=== PATIENT | female | born 1950 | race Caucasian/White ===

== ENCOUNTER → 2016-12-26 | Outpatient (CLI) | payer OTHER, MEDICARE ==
[~2016-12-26] MED LIST: ACET-1138 PO; AMLO-110 PO; AMOX500C3 PO; ASPEC325 PO; ASPI81TA28 PO; CALC500C70 PO; CALC500T83 PO; CHOL2000 PO; CYAN10005 PO; DICL-201 PO; ESCI1TAB10 PO; FRRG PO; HMLI7525 SC; INSU1.2I SC; INSU100I2 SC; LEVO175T PO; LEVO200T PO; LISI40TA PO; METF1TAB85 PO; METR-163 PO; MULT-884 PO; NAPR1TAB9 PO; RXC5 PO
[2016-12-26 13:36] LABS: ALT/SGPT 23 U/L (12-78); AST/SGOT 22 U/L (15-37); BLOOD UREA NITROGEN 14 mg/dl (7-18); BUN/CREATININE RATIO 15.6 (10-20); CALCIUM 8.9 mg/dl (8.5-10.1); CARBON DIOXIDE 29 mmol/L (21-32); CHLORIDE 101 mmol/L (98-107); CHOLESTEROL 152 mg/dl (0-200); CREATININE 0.88 mg/dl (0.60-1.20); GLUCOSE 189 mg/dl (70-99); SODIUM 138 mmol/L (136-145); TRIGLYCERIDES 134 mg/dl (0-150); VERY LOW DENSITY LIPOPROT CALC 27 mg/dl
[2016-12-26 13:46] LABS: ALB/GLOB RATIO 1.1 (0.9-2); ALKALINE PHOSPHATASE 101 U/L (45-117); HDL CHOLESTEROL 50 mg/dl; LDL CHOLESTEROL CALCULATED 75 mg/dl; THYROID STIMULATING HORMONE 0.861 uIu/ml (0.300-4.500)
[2016-12-26 13:50] LABS: ESTIMATED AVERAGE GLUCOSE 189 mg/dl; HA1C FLAG Normal (Normal)
== END | disposition home or self-care (01) ==
LOC: C.LABBC 11:01
PROVIDERS: ATTEND Family Medicine
DX: E11.9 Type 2 diabetes mellitus without complications (principal); E03.9 Hypothyroidism, unspecified; I10 Essential (primary) hypertension

== ENCOUNTER → 2017-01-06 | Outpatient (CLI) | payer OTHER, MEDICARE ==
[2017-01-10 16:32] LABS: IGA SERUM 324 mg/dL (81-463); TIS TRANS IGA 1 U/mL (<4)
== END | disposition home or self-care (01) ==
LOC: C.LAB1850 15:52
PROVIDERS: ATTEND Physician Assistant
DX: R19.7 Diarrhea, unspecified (principal)

== ENCOUNTER → 2017-01-15 | Day surgery (SDC) | payer OTHER, MEDICARE ==
[2017-01-14 11:27] VITALS: Ht 165.1 cm; Wt 119.5 kg
[~2017-01-15] VITALS: Ht 165.1 cm; Wt 119.5 kg
[~2017-01-15] MED LIST changes: -ACET-1138 PO; -ASPEC325 PO; +ATROPINE SULFATE 0.1 MG/ML 5ML SYR IV PRN; -CALC500T83 PO; -CHOL2000 PO; +EpHEDrine SULFATE INJ 50 MG/ML AMP IV PRN; -FRRG PO; -HMLI7525 SC; -LEVO175T PO; +LIDOCAINE HCL 2% 2 ML VIAL (20MG/ML) ONE; +MIDAZOLAM HCL 1 MG/ML 2ML VIAL ONE; -NAPR1TAB9 PO; +ONDANSETRON INJ 2 MG/ML 2 ML VIAL ONE; +PROPOFOL IV EMULSION 10 MG/ML 20 ML VIAL IV ONE; -RXC5 PO; +SODIUM CHLORIDE 0.9% 500ML 500 ML IV ONE
--- NOTE | 2017-01-15 12:22 | Endo History and Physical ---
History & Physical Date of Service: Jan 15, 2017. Chief Complaint: Diarrhea Referring Physician: Dr. Obando History of Present Illness 66 yo CF who presents for colonoscopy secondary to diarrhea. Past Medical History Diabetes, Arthritis, Fractures, Hypertension, Thyroid Disease, Other, Depression Past Surgical History Hx Cardiac Surgery: No Hx Internal Defibrillator: No Hx Pacemaker: No Hx Abdominal Surgery: Yes (CERVICAL CRYOTHERAPY, APPY) Hx of Implantable Prosthesis: No Hx Post-Op Nausea and Vomiting: No Hx Cancer Surgery: No Hx Thoracic Surgery: No Hx Orthopedic: Yes (LT/RT TKA, LT CTR X2, LT RCR) Hx Urinary Tract Surgery: No Family History None Social History Smoking Status: Former Smoker Hx Substance Use: No Hx Alcohol Use: No Allergies Coded Allergies: A[place] Oil (Verified Allergy, Unknown, ICHY EYES STUFFY NOSE, 01/14/17) NO KNOWN DRUG ALLERGIES (Verified Allergy, Unknown, ., 01/14/17) POLLEN (Verified Allergy, Unknown, POLLEN,MOLDS,OAK TREES-STUFFY NOSE ITCHY EYES, 01/14/17) Current Medications Reported Home Medications Medications Dose Route/Sig Max Daily Dose Days Date Category Dose Instructions Amoxil (Amoxicillin) 500 Mg Cap 4 Tabs PO UD PRN 01/14/17 Reported Flagyl (Metronidazole) 500 Mg Tab 2 Tabs PO UD PRN 01/14/17 Reported Toujeo Solostar (Insulin Glargine) 300 Unit/Ml Inj 48 Units SC HS 01/14/17 Reported Humalog Kwikpen (Insulin Lispro (Human)) 100 Unit/Ml Inj Units SC UD 01/14/17 Reported 14 UNITS BREAKFAST 14 UNITS LUNCH 16 UNITS DINNER Os-Jose 500 Plus D (Calcium/Vitamin D) Tab 1 Tab PO BID 01/14/17 Reported Aspirin Ec (Aspirin) 81 Mg Tab 81 Mg PO AFTERNOON 01/14/17 Reported Norvasc (Amlodipine Besylate) 5 Mg Tab 5 Mg PO QAM 01/14/17 Reported Synthroid (Levothyroxine Sodium) 200 Mcg Tab 200 Mcg PO QAM 01/14/17 Reported Voltaren (Diclofenac Sodium) 75 Mg Tabcr 75 Mg PO BID PRN 06/05/16 Reported WITH FOOD Zestril (Lisinopril) 40 Mg Tab 40 Mg PO HS 02/19/16 Reported Lexapro (Escitalopram Oxalate) 20 Mg Tab 20 Mg PO QPM 01/21/16 Reported Vitamin B-12 (Cyanocobalamin) 1,000 Mcg Tab 1,000 Mcg PO QAM 08/17/14 Reported Multi Vitamin Daily (Multiple Vitamin) 1 Tab Tab 1 Tab PO QAM 08/17/14 Reported Metformin Hcl Er (Metformin Hcl) 500 Mg Tab 500 Mg PO BID 08/17/14 Reported Vital Signs Weight (Kilograms): 119.55 Height (Feet): 5 Height (Inches): 5 Physical Exam General Appearance: WD/WN, no apparent distress Respiratory/Chest: Auscultation: breath sounds normal Cardiovascular: Heart Auscultation: RRR Abdomen: Bowel Sounds: normal Inspection & Palpation: soft, non-distended, no tenderness, guarding & rebound Assessment and Plan Assessment: 66 yo CF who presents for colonoscopy secondary to diarrhea. Plan: Proceed with colonoscopy.
--- NOTE | 2017-01-15 13:42 | GI REPORT ---
Procedure Date: 01/15/2017 12:51 PM Procedure: Colonoscopy Indications: Chronic diarrhea Medicines: Monitored Anesthesia Care Complications: No immediate complications. Estimated Blood Loss: Estimated blood loss: none. Procedure: Pre-Anesthesia Assessment: - Prior to the procedure, a History and Physical was performed, and patient medications and allergies were reviewed. The patient's tolerance of previous anesthesia was also reviewed. The risks and benefits of the procedure and the sedation options and risks were discussed with the patient. All questions were answered, and informed consent was obtained. Prior Anticoagulants: The patient has taken aspirin, last dose was 6 days prior to procedure. ASA Grade Assessment: II - A patient with mild systemic disease. After reviewing the risks and benefits, the patient was deemed in satisfactory condition to undergo the procedure. After I obtained informed consent, the scope was passed under direct vision. Throughout the procedure, the patient's blood pressure, pulse, and oxygen saturations were monitored continuously. The scope was introduced through the anus and advanced to the terminal ileum. The colonoscopy was performed without difficulty. The patient tolerated the procedure well. The quality of the bowel preparation was good. The terminal ileum, ileocecal valve, appendiceal orifice, and rectum were photographed. Findings: Three sessile polyps were found in the transverse colon and in the cecum. The polyps were 5 to 6 mm in size. These polyps were removed with a hot snare. Resection and retrieval were complete. A 12 mm polyp was found in the ascending colon. The polyp was flat. The polyp was removed with a saline injection-lift technique using a hot snare. Resection and retrieval were complete. To prevent bleeding after the polypectomy, one hemostatic clip was successfully placed (MR conditional). There was no bleeding at the end of the procedure. Multiple small-mouthed diverticula were found in the sigmoid colon. Non-bleeding internal hemorrhoids were found during retroflexion. The hemorrhoids were small. Multiple random biopsies were obtained with cold forceps for histology in the entire colon. Fluid aspiration for cytology was performed in the entire colon. Impression: - Three 5 to 6 mm polyps in the transverse colon and in the cecum, removed with a hot snare. Resected and retrieved. - One 12 mm polyp in the ascending colon, removed using injection-lift and a hot snare. Resected and retrieved. Clip (MR conditional) was placed. - Diverticulosis in the sigmoid colon. - Non-bleeding internal hemorrhoids. - Multiple random biopsies were obtained in the entire colon. - Fluid aspiration was performed. Recommendation: - Resume previous diet. - Continue present medications. - Repeat colonoscopy for surveillance based on pathology results. - Return to primary care physician as previously scheduled. Ron Artis, DO 01/15/2017 1:41:56 PM This report has been signed electronically. Note Initiated On: 01/15/2017 12:51 PM I attest to the content of the Intraoperative Record and orders documented therein, exceptions below
--- NOTE | 2017-01-15 13:48 | Discharge Instructions ---
Endoscopy Patient Instructions Date / Procedure(s) Performed Jan 15, 2017. Colonoscopy Allergy Information Coded Allergies: Petrolia Oil (Verified Allergy, Unknown, ICHY EYES STUFFY NOSE, 01/15/17) NO KNOWN DRUG ALLERGIES (Verified Allergy, Unknown, ., 01/15/17) POLLEN (Verified Allergy, Unknown, POLLEN,MOLDS,OAK TREES-STUFFY NOSE ITCHY EYES, 01/15/17) Discharge Date / Findings Jan 15, 2017. Random colon biopsies Stool aspirate collected Colon polyps Diverticulosis Internal hemorrhoids Medication Instructions Stopped Medication(s): stopped ASA on tuesday 01/09,and Metformin 01/13 OK to resume all medications today as prescribed Reported Home Medications Medications Dose Route/Sig Max Daily Dose Days Date Category Dose Instructions Amoxil (Amoxicillin) 500 Mg Cap 4 Tabs PO UD PRN 01/14/17 Reported Flagyl (Metronidazole) 500 Mg Tab 2 Tabs PO UD PRN 01/14/17 Reported Toujeo Solostar (Insulin Glargine) 300 Unit/Ml Inj 48 Units SC HS 01/14/17 Reported Humalog Kwikpen (Insulin Lispro (Human)) 100 Unit/Ml Inj Units SC UD 01/14/17 Reported 14 UNITS BREAKFAST 14 UNITS LUNCH 16 UNITS DINNER Os-Jose 500 Plus D (Calcium/Vitamin D) Tab 1 Tab PO BID 01/14/17 Reported Aspirin Ec (Aspirin) 81 Mg Tab 81 Mg PO AFTERNOON 01/14/17 Reported Norvasc (Amlodipine Besylate) 5 Mg Tab 5 Mg PO QAM 01/14/17 Reported Synthroid (Levothyroxine Sodium) 200 Mcg Tab 200 Mcg PO QAM 01/14/17 Reported Voltaren (Diclofenac Sodium) 75 Mg Tabcr 75 Mg PO BID PRN 06/05/16 Reported WITH FOOD Zestril (Lisinopril) 40 Mg Tab 40 Mg PO HS 02/19/16 Reported Lexapro (Escitalopram Oxalate) 20 Mg Tab 20 Mg PO QPM 01/21/16 Reported Vitamin B-12 (Cyanocobalamin) 1,000 Mcg Tab 1,000 Mcg PO QAM 08/17/14 Reported Multi Vitamin Daily (Multiple Vitamin) 1 Tab Tab 1 Tab PO QAM 08/17/14 Reported Metformin Hcl Er (Metformin Hcl) 500 Mg Tab 500 Mg PO BID 08/17/14 Reported Provider Instructions Activity Restrictions - No exercising or heavy lifting for 24 hours. - Do not drink alcohol the day of the procedure. - Do not drive a car or operate machinery until the day after the procedure. - Do not make any important decisions or sign important papers in 24 hours after the procedure. Following Day: - Return to full activity which may include returning to work/school. Diet Start your diet with liquids and light foods (jello, soup, juice, toast). Then eat your usual diet if not nauseated. Treatment For Common After Affects For mild abdominal pain, bloating, or excessive gas: - Rest - Eat lightly - Lie on right side Follow-Up Information Follow-up with Dr. Elizabeth Obando as scheduled Anesthesia Information What You Should Know You have had a procedure that required some medicine to reduce anxiety and discomfort. This treatment is called moderate sedation. After receiving the treatment, you may be sleepy, but you will be able to breathe on your own. The effects of the treatment may last for several hours. Follow these instructions along with Activity/Diet recommendations noted above: * Do NOT do anything where dizziness or clumsiness would be dangerous. * Rest quietly at home today, then you can be up and about tomorrow. * Have a responsible person stay with you the rest of today. * You may have had an I.V. today. If so, you may take the dressing off later today. Recommendations Call your doctor if: * Trouble breathing * Continuous vomiting for more than 24 hours * Temperature above 101 degrees * Severe abdominal pain or bloating * Pain not relieved by pain medicine ordered * There is increased drainage or redness from any incision * A large amount of rectal bleeding greater than 2-3 tablespoons. (If you had a polyp/s removed or have hemorrhoids, a small amount of blood - from the rectum is to be expected.) * You have any unanswered questions or concerns. IN THE EVENT OF A SERIOUS EMERGENCY, GO TO THE NEAREST EMERGENCY ROOM Your discharge instructions were prepared by provider Ron Artis. Patient Instructions Signature Page Rubi Aldana Patient (or Guardian) Signature/Date: I have read and understand the instructions given to me by my caregivers. Caregiver/RN/Doctor Signature/Date: The above-named patient and/or guardian has received patient instructions on this date. + Original Patient Signature Page (only) stays with chart. Please make copy for patient.
--- NOTE | 2017-01-15 14:00 | Anesthesiology Progress Note ---
Anesthesia Post Op Note Date & Time Jan 15, 2017 at 13:59 Vital Signs Pain Intensity: 3 Vital Signs Past 12 Hours Date Time Temp Pulse Resp B/P Pulse Ox O2 Delivery O2 Flow Rate FiO2 01/15/17 13:40 72 20 146/63 96 Room Air 01/15/17 12:24 36.7 77 20 151/68 95 Room Air Notes Mental Status: alert / awake / arousable, participated in evaluation Pt Amnestic to Procedure: Yes Nausea / Vomiting: adequately controlled Pain: adequately controlled Airway Patency, RR, SpO2: stable & adequate BP & HR: stable & adequate Hydration State: stable & adequate Anesthetic Complications: no major complications apparent
[2017-01-15 14:13] VITALS: BP 166/73; PULSE 64; O2SAT 94
== END | disposition home or self-care (01) ==
LOC: C.GI 11:53
PROVIDERS: ATTEND Internal Medicine
DX: R19.7 Diarrhea, unspecified (principal); D12.0 Benign neoplasm of cecum; K63.5 Polyp of colon; K57.30 Diverticulosis of large intestine without perforation or abscess without bleeding; K64.8 Other hemorrhoids; E11.9 Type 2 diabetes mellitus without complications; M19.90 Unspecified osteoarthritis, unspecified site; I10 Essential (primary) hypertension; F32.9 Major depressive disorder, single episode, unspecified; Z98.890 Other specified postprocedural states; Z87.891 Personal history of nicotine dependence

== ENCOUNTER → 2017-01-19 | Outpatient (CLI) | payer OTHER, MEDICARE ==
[~2017-01-19] MED LIST changes: -ATROPINE SULFATE 0.1 MG/ML 5ML SYR IV PRN; -EpHEDrine SULFATE INJ 50 MG/ML AMP IV PRN; -LIDOCAINE HCL 2% 2 ML VIAL (20MG/ML) ONE; -MIDAZOLAM HCL 1 MG/ML 2ML VIAL ONE; -ONDANSETRON INJ 2 MG/ML 2 ML VIAL ONE; -PROPOFOL IV EMULSION 10 MG/ML 20 ML VIAL IV ONE; -SODIUM CHLORIDE 0.9% 500ML 500 ML IV ONE
== END | disposition home or self-care (01) ==
LOC: C.MAMM 08:57
PROVIDERS: ATTEND Family Medicine
DX: E55.9 Vitamin D deficiency, unspecified (principal); Z78.0 Asymptomatic menopausal state

== ENCOUNTER → 2017-07-02 | Outpatient (CLI) | payer OTHER, MEDICARE ==
[2017-07-02 13:43] LABS: BLOOD UREA NITROGEN 11 mg/dl (7-18); BUN/CREATININE RATIO 11.6 (10-20); CALCIUM 8.9 mg/dl (8.5-10.1); CARBON DIOXIDE 25 mmol/L (21-32); CHLORIDE 108 mmol/L (98-107); CREATININE 0.97 mg/dl (0.60-1.20); GLUCOSE 101 mg/dl (70-99); POTASSIUM 4.2 mmol/L (3.5-5.1); SODIUM 141 mmol/L (136-145)
[2017-07-02 13:48] LABS: ESTIMATED AVERAGE GLUCOSE 146 mg/dl; HA1C FLAG Normal (Normal)
[2017-07-02 13:54] LABS: ALB/GLOB RATIO 1.1 (0.9-2); ALKALINE PHOSPHATASE 112 U/L (45-117); ALT/SGPT 23 U/L (12-78); AST/SGOT 20 U/L (15-37)
[2017-07-03 07:24] LABS: RATIO 12.2 mcg/mg (0-30.0)
--- NOTE | 2017-07-07 10:06 | CODING QUERY MEDICAL NECESSITY ---
SUPPORTING DIAGNOSIS NEEDED Dr. Obando, A supporting diagnosis is required for the test/procedure performed on this patient in order for us to be reimbursed by the patient's insurance. Please provide a supporting diagnosis for the following test/procedure listed below next to the test name along with your signature. *If there is no additional diagnosis for this patient that would support the following test/procedure please document that below next to the test/procedure. Test(s)/Procedure(s) that require a supporting diagnosis: * [id number] GLYCATED HEMOGLOBIN DIAGNOSIS: DATE OF SERVICE: 07/02/17 Provider Signature: Date: Thank you Judah Beasley [facility] Information Management Once completed, please kindly fax back to [phone] For questions please call [phone]
== END | disposition home or self-care (01) ==
LOC: C.LABBC 10:33
PROVIDERS: ATTEND Family Medicine
DX: E55.9 Vitamin D deficiency, unspecified (principal); R19.7 Diarrhea, unspecified; Z11.59 Encounter for screening for other viral diseases

== ENCOUNTER → 2017-07-16 | Outpatient (CLI) | payer OTHER, MEDICARE ==
--- NOTE | 2017-07-16 13:55 | MAMMOGRAPHY REPORT ---
BILATERAL DIGITAL SCREENING MAMMOGRAM WITH CAD: 07/16/2017 CLINICAL HISTORY: Routine screening. Patient has no complaints. TECHNIQUE: Current study was also evaluated with a Computer Aided Detection (CAD) system. Bilateral CC and MLO views were obtained. COMPARISON: Comparison is made to exams dated: 07/14/2016 mammogram, 07/10/2015 mammogram, 10/10/2010 m ammogram, 08/24/2009 mammogram - [facility], 05/13/2007, and 03/01/2004 mammogram - [facility]. BREAST COMPOSITION: The tissue of both breasts is almost entirely fatty. FINDINGS: No suspicious masses, calcifications, or areas of architectural distortion are noted in ei ther breast. There has been no significant interval change compared to prior exams. IMPRESSION: ACR BI-RADS CATEGORY 1: NEGATIVE There is no mammographic evidence of malignancy. A 1 year screening mammogram is recommended. The pa tient will receive written notification of the results. Approximately 10% of breast cancers are not detected with mammography. A negative mammographic report should not delay biopsy if a clinically suggestive mass is present. Traci Alfred M.D. /:07/16/2017 10:28:28 Case Aide: Coral GLEZ(Gianna)(M), [facility] letter sent: Normal 1/2 BI-RADS Code: ACR BI-RADS Category 1: Negative
== END | disposition home or self-care (01) ==
LOC: C.MAMM 09:09
PROVIDERS: ATTEND Obstetrics & Gynecology
DX: Z12.31 Encounter for screening mammogram for malignant neoplasm of breast (principal)

== ENCOUNTER → 2017-12-31 | Outpatient (CLI) | payer OTHER, MEDICARE ==
[2017-12-31 10:58] LABS: BLOOD UREA NITROGEN 11 mg/dl (7-18); CALCIUM 9.4 mg/dl (8.5-10.1); CARBON DIOXIDE 27 mmol/L (21-32); CREATININE 0.93 mg/dl (0.60-1.20); GLUCOSE 107 mg/dl (70-99); POTASSIUM 3.4 mmol/L (3.5-5.1); SODIUM 136 mmol/L (136-145)
[2017-12-31 11:05] LABS: HEMOGLOBIN A1C 9.2 % (4.5-5.6)
[2017-12-31 11:11] LABS: CHOLESTEROL 156 mg/dl (0-200); LDL CHOLESTEROL CALCULATED 83 mg/dl
== END | disposition home or self-care (01) ==
LOC: C.LABBC 08:05
PROVIDERS: ATTEND Nurse Practitioner Family
DX: E11.9 Type 2 diabetes mellitus without complications (principal)

== ENCOUNTER → 2018-05-17 | Outpatient (CLI) | payer OTHER, MEDICARE ==
[~2018-05-17] MED LIST changes: -AMLO-110 PO; +AMLO5TAB3 PO
--- NOTE | 2018-05-18 06:36 | PAP/PSG TECHNICIAN REPORT ---
Research & Analytics Manager Polysomnogram Report Study name: None Report date: 05/18/2018 Study date: 05/17/2018 Referring Physician: Yousuf Allison M.D. Name: JAMIR ALDANA Interpreting Physician: Yousuf Allison M.D. Date of : 1950 Research & Analytics Manager: Odette Meyers [facility]. Sex: Female Age: 67 StudyType: PSG Weight: 270 lbs Height: 67 years, Height 5' 4.5" BMI: 45.62 Medications: Amlodipine Besylate 5 mg, Aspirin 81 mg, Caltrate 600 +D, Diclofenac Sodium 75 mg, Escitalopram Oxalate 20 mg, Humalog. Levothyroxine Sodium 200 mg, Lisinopril 40 mg, Melatonin 3-2 mg, Metformin 500 mg, Multi Vitamins, Toujeo SoloStar 300 units/ML, Vitamin B-12 Patient History 67 yr. old female here for a diagnostic sleep study. Patient complains of snoring, witnessed apneas, fatigue and insomnia, Patients Uledi Sleepiness Scale Score is 5 /24. Parameters Monitored NPSG: E1-M2, E2-M1, Fp1-M2, Fp2-M1, F3-M2, F4-M2, F4-M1, C3-M2, C4-M2, C4-M1, O1-M2, O2-M2, O2-M1, T3-M2, T4-M1, P3-M2, P4-M1, CHIN1, CHIN2, HR, EKG, Legs, PFLOW, SNOR, FLOW, CFLOW, Tidal Volume, THOR, ABDO, SpO2, PLTH, CPRESS, ETCO2 Wave, ETCO2, pH Sleep Architecture Sleep Stages Time at Lights Off 10:53:44 PM STAGES Time (min.) TST (%) Time at Lights On 5:55:44 AM Wake 67.0 -- Total Recording Time (TRT) 422.00 min. N1 57.5 16 Total Sleep Period (TSP) 404.5 min. N2 211.5 60 Total Sleep Time (TST) 355.0min. N3 39.5 11 Awake Time 67.0 min. REM 46.5 13 Wake after Sleep Onset 49.5 min. Sleep Efficiency (SE) 84 % Sleep Onset Latency (REAL) 17.5 min. Number of Stage 1 Shifts None Awakenings 25 Stage Changes 105 Number of REM periods 4 REM 46.5 13 REM Latency 343.0 min. NREM 308.5 87 Body Position Analysis Supine Right Left Side Prone Vertical Total Sleep Time (min.) 343.4 0.0 78.1 78.07 0.0 0.0 Total Sleep Time (%) 78% 0% 22% 22 0% N/A% Total Sleep Time REM (min.) 43.2 0.0 3.3 None 0.0 0.0 Total Sleep Time NREM (min.) 233.7 0.0 74.8 None 0.0 0.0 Intermittent Wake (min.) 66.5 0.0 0.5 None 0.0 0.0 Total Sleep Period (%) 81% None None None None None Arousals Myoclonus (PLM) * Events Count Index Events Count Index Spontaneous 7 1 Events Awake (PLMW) 96 86.0 Respiratory 7 1.9 Events Asleep w/ Arousal (PLMA) 20 3.4 PLM 20 3 Events Asleep w/o Arousal (PLMS) 245 41.4 Snoring 15 3 Total Asleep 265 44.8 Total 48 8 Total 361 51 Respiratory Analysis * CA OA MA CH H RERA Total Count 0 82 0 0 86 1 168 Index 0.0 13.9 0.0 0 14.5 0 28.6 Mean Duration 0.0 21.4 0.0 0.00 17.3 28.6 19.4 Longest Duration 0.0 48.8 0.0 0.00 0.0 28.6 48.8 Respiratory Event Summary Total Supine ~Supine Right Left Prone REM NREM Apneas Count 82 77 5 N/A 5 N/A 39 43 Index 13.9 17 4 N/A 3.8 N/A 50 8 Hypopneas (4% Desat) Count 86 68 18 N/A 18 N/A 27 59 Index 14.5 14.7 14 N/A 13.8 N/A 34.8 11.5 Apneas & All Hypopneas Count 168 145 23 N/A 23 N/A 66 102 Index 28.4 31 18 N/A 18 N/A 85.2 19.8 Respiratory Events (Cell Maker+All Hyp+RERA) Count 168 146 23 N/A 23 N/A 66 102 Index 28.6 32 18 N/A 17.7 N/A 86.5 19.8 Respiratory Related Arousal Count 7 146 2 N/A 2 N/A 6 5 Index 1.9 2 2 N/A 2 N/A 8 1 Snoring Analysis Supine Right Left Prone REM NREM Total Snore duration 105.5 min Snores count 2,805 N/A 440 N/A 269 2,976 3,245 Snore mean duration 2.0 Sec Snores index 608 N/A 338 N/A 347.1 578.8 548.5 TST with snoring (%) 29.7% Desaturation Event Summary: Minimum %SpO2 Event Count Mean/Min/Max Duration(sec.) Desaturation Index % Time In Bed > 90 106 24.7 / 10.3 / 56.8 19.1 80.5 86 - 90 34 19.0 / 9.0 / 37.8 29.9 16.5 81 - 85 4 20.3 / 9.0 / 31.8 22.1 2.6 76 - 80 0 N/A 0.0 0.3 71 - 75 0 N/A 0.0 0.0 66 - 70 0 N/A 0.0 0.0 61 - 65 0 N/A 0.0 0.0 56 - 60 0 N/A 0.0 0.0 51 - 55 0 N/A 0.0 0.0 < 50 0 N/A 0.0 0.0 Total REM NREM Awake <50% 0.0 min. 0.0 min. 0.0 min. 0.0 min. 51 - 60% 0.0 min. 0.0 min. 0.0 min. 0.0 min. 61 - 70% 0.0 min. 0.0 min. 0.0 min. 0.0 min. 71 - 80% 1.2 min. 1.2 min. 0.0 min. 0.0 min. 81 - 90% 79.1 min. 26.4 min. 49.2 min. 3.4 min. 91 - 100% 332.2 min. 18.9 min. 257.2 min. 56.2 min. Average 92 89 92 93 Minimum SpO2 78 78 81 81 Desaturation Event Index 17.1 50.3 14.8 6.3 # Desat. Events below 89% 95 38 53 4 Time(%) with Saturation below 89% 7.9 5.0 2.5 0.4 Time(min.) with Saturation below 89% 32.4 20.6 10.3 1.6 Time (mins) REM (mins) NREM (mins) % of TST SpO2 Below 90% 111 39 N72 12.8 SpO2 Below 88% 35 0 0 6 Heart Rate Analysis Min (bpm) Max (bpm) Average (bpm) Awake 41 127 58 NREM 47 127 56 REM 41 88 57 Overall 41 127 56 Supplemental O2 Values Minimum O2 level: None Value Start Time End Time Research & Analytics Manager Comments MS. Aldana slept in the supine position. No cardiac arrhythmia. PLMs noted. Bruxism noted. Snoring was noted and scored as a 3 on a scale of 0 through 5. (0=no snoring, 5=snoring loud enough to be heard through a closed door or down the [place] way) MS. Aldana awoke to use the restroom once during the night. MS. Aldana stated, I slept. The final report will be interpreted and signed by a sleep physician. The completed physician report will then be placed in the patient medical record. Therapy (cm H2O) 0 TIB (min.) 422.0 TST (min.) 355.0 Sleep Onset (min.) 17.5 REM Onset From Sleep (min.) 343.0 Sleep Efficiency % 84 Wakefulness (%) 16 Wakefulness (min.) 67.0 NREM 1 (%) 16 NREM 1 (min.) 57.5 NREM 2 (%) 60 NREM 2 (min.) 211.5 NREM 3 (%) 11 NREM 3 (min.) 39.5 REM (%) 13 REM (min.) 46.5 # Arousals 48 Arousal Index 8 # Snore 3,245 Snore Index 548.5 AHI 28.4 AHI Supine 31 AHI Non-Supine 18 NREM AHI 19.8 REM AHI 85.2 RDI 28.6 # Obstructive Apnea 82 # Central Apnea 0 # Mixed Apnea 0 # Hypopneas 86 RERAs 1 Total Respiratory Events 173 Time Below SpO2 89% (min.) 30.9 Mean NREM SpO2 (%) 92 Mean REM SpO2 (%) 89 Mean Sleep SpO2 (%) 91 Min NREM SpO2 (%) 81 Min REM SpO2 (%) 78 Position Supine (min.) 343.4 Position Non-supine (min.) 78.1 LM Index Sleep 44.8 LM Index NREM 50.0 LM Index REM 10.3 Mean Heart Rate (bpm) 56 Min Heart Rate (bpm) 41
--- NOTE | 2018-05-21 11:30 | POLYSOMNOGRAPH REPORT ---
CLINICAL DATA: [age]old female with BMI of 45.[address] Obando and Katherine Ravi for evaluation of snoring, witnessed apnea, fatigue, and insomnia. SLEEP ARCHITECTURE: Total sleep period was 404.5 minutes. Total sleep time was 355 minutes divided between 308.5 minutes of non-REM sleep and 46.5 minutes of REM sleep. Sleep onset latency was 17.5 minutes. REM latency was delayed at 343 minutes. Sleep efficiency was 84%. Wake after sleep onset was 49.5 minutes. Sleep consisted of stage N1 16%, stage N2 60%, stage N3 11%, and REM 13%. AROUSAL DATA: 48 arousals were recorded for an index of 8 per hour. PLM DATA: Significantly elevated limb movements during sleep were noted. There were 265 limb movements during sleep noted for an index of 44.8 per hour with arousal index of 3.4 per hour. RESPIRATORY DATA: Moderate sleep apnea was documented. The AHI was 28.4. There were 82 obstructive apneic episodes. The longest duration of apnea was 48.8 seconds. There were 86 hypopneic episodes with the mean duration of 17.3 seconds. OXIMETRY DATA: Nocturnal hypoxemia was seen. Oxygen mike was 78% during REM. Mean saturation was 92%. Time below 88% was 35 minutes. EKG: Heart rates ranged from 47-127 beats per minute. No arrhythmias were noted. SLOT FLOORPERSON'S COMMENTS: The patient slept supine. Bruxism was noted. Snoring was moderate, rated 3 on a scale of 1-5. IMPRESSION: 1. Moderate sleep apnea/hypopnea with nocturnal hypoxemia with an AHI of 28.4 and an oxygen mike of 78%. 2. Bruxism. 3. Significant periodic limb movement disorder. RECOMMENDATIONS: The patient may benefit from repeat sleep study with CPAP, use of auto CPAP or use of an oral appliance. Clinical correlation is needed. [facility]
== END | disposition home or self-care (01) ==
LOC: C.NEUR 20:00
PROVIDERS: ATTEND Internal Medicine Pulmonary Disease
DX: G47.33 Obstructive sleep apnea (adult) (pediatric) (principal); G47.63 Sleep related bruxism; G47.61 Periodic limb movement disorder; R53.83 Other fatigue; G47.00 Insomnia, unspecified; E66.01 Morbid (severe) obesity due to excess calories

== ENCOUNTER → 2018-05-26 | Outpatient (CLI) | payer OTHER, MEDICARE ==
[2018-05-27 06:14] LABS: HEMOGLOBIN A1C 8.5 % (4.5-5.6)
== END | disposition home or self-care (01) ==
LOC: C.LABBC 14:35
PROVIDERS: ATTEND Nurse Practitioner Family
DX: E11.65 Type 2 diabetes mellitus with hyperglycemia (principal)